=== PATIENT | male | born 1970 | race African-American/Black ===

== ENCOUNTER 2020-09-20 11:27 | Emergency (ER) | payer OTHER ==
[~2020-09-20] VITALS: Ht 177.8 cm; Wt 91.0 kg
[2020-09-20] MEDS ORDERED: KETOROLAC 30MG/ML VIAL IV STA (11:50)
[2020-09-20 12:09] LABS: BASOPHILS % 0.6 % (0.0-2.0); EOSINOPHILS % 2.8 % (0.0-5.0); HEMATOCRIT. 47.6 % (42.0-52.0); HEMOGLOBIN. 16.1 g/dL (14.0-18.0); LYMPHOCYTES % 47.6 % (20.0-50.0); MEAN CORPUSCULAR HEMOGLOBIN 29.2 pg (28.0-32.0); MEAN CORPUSCULAR VOLUME 86.6 fL (80.0-94.0); MONOCYTES % 11.1 % (2.0-8.0); NEUTROPHILS % 37.9 % (40.0-76.0); PLATELET 152 x1000/uL (130-400); RED CELL DISTRIBUTION WIDTH 13.8 % (11.6-14.6)
[2020-09-20 12:18] LABS: CHLORIDE 105 mEq/L (98-107)
[2020-09-20 13:31] VITALS: BP 146/96
== END 2020-09-20 14:05 | disposition home or self-care (01) ==
LOC: ER 11:52
DX: R10.84 Generalized abdominal pain (principal); Z98.890 Other specified postprocedural states
CPT/HCPCS: 36415; 74176; 80053; 83690; 85025; 96374; 99284; J1885; Z7610